=== PATIENT | female | born 1950 | race Caucasian/White ===

== ENCOUNTER 2019-11-12 08:22 | Inpatient (IN) ==
[2019-11-12] MEDS ORDERED: Ondansetron 4 MG/2 ML VIAL IVP ONE (08:55)
[2019-11-12] MEDS ORDERED: *HR* Metoprolol 5 MG/5 ML VIAL IVP PRN (08:55)
[2019-11-12] MEDS ORDERED: Gabapentin 300 MG CAPSULE PO ONE (08:55)
[2019-11-12] MEDS ORDERED: *HR* Promethazine 25 MG/ML VIAL IVP PRN (08:55)
[2019-11-12] MEDS ORDERED: Acetaminophen IV 1,000 MG/100 ML INFUS..BTL IVPB ONE (08:55)
[2019-11-12] MEDS ORDERED: *HR* OxyCODONE Immed Rel 5 MG TABLET PO PRN (08:55)
[2019-11-12] MEDS ORDERED: Ketorolac 15 MG/ML VIAL IVP ONE (08:55)
[2019-11-12] MEDS ORDERED: Clindamycin 900 MG/50 ML 900 MG/50 ML IV.SOLN IVPB ONE (09:23)
[2019-11-12] MEDS ORDERED: Albumin Human 5% 25.0 GM/500 ML IV.SOLN ONE (09:30)
[2019-11-12] MEDS ORDERED: Ringers Solution, Lactated 1,000 ML IVC SCH (09:30)
[2019-11-12] MEDS ORDERED: Ondansetron 4 MG/2 ML VIAL ONE (09:47)
[2019-11-12] MEDS ORDERED: *HR* Rocuronium Bromide 50 MG/5 ML VIAL ONE (09:47)
[2019-11-12] MEDS ORDERED: Lidocaine -MPF 2% 2 ML VIAL ONE (09:47)
[2019-11-12] MEDS ORDERED: *HR* FentaNYL (PF) 100 MCG/2 ML VIAL ONE ×2 (09:47→12:18)
[2019-11-12] MEDS ORDERED: Dexamethasone 4 MG/ML VIAL ONE (09:47)
[2019-11-12] MEDS ORDERED: *HR* Succinylcholine 200 MG/10 ML VIAL IVP ONE (09:47)
[2019-11-12] MEDS ORDERED: EPHEDrine 50 MG/ML VIAL ONE (10:24)
[2019-11-12] MEDS: *HR* HYDROmorphone PF 0.5 MG/0.5 ML SYRINGE IVP PRN ×4 (12:30→12:58)
[2019-11-12] MEDS ORDERED: Ondansetron 4 MG/2 ML VIAL IVP PRN (13:50)
[2019-11-12] MEDS ORDERED: Naloxone 0.4 MG/ML INJ IVP PRN (13:50)
[2019-11-12] MEDS: *HR* Heparin 5,000 UNIT/ML VIAL SQ SCH ×2 (14:54→20:28)
[2019-11-12] MEDS: *HR* HYDROcodone/Acet 5/325 mg TABLET PO PRN ×2 (14:55→20:33)
[2019-11-12] MEDS: Gabapentin 300 MG CAPSULE PO SCH ×2 (14:55→20:28)
[2019-11-12] MEDS: 0.9 % Sodium Chloride 1,000 ML IVC SCH (14:55)
[2019-11-12] MEDS: Ipratropium/Albuterol Neb 3 ML IH SCH ×3 (16:08→23:34)
[2019-11-12] MEDS: Ketorolac 15 MG/ML VIAL IVP SCH ×2 (17:39→23:17)
[2019-11-12] MEDS: Famotidine 20 MG TABLET PO SCH (20:28)
[2019-11-12] MEDS: Sennosides/Docusate Sodium TABLET PO SCH (20:28)
[2019-11-13] MEDS: *HR* HYDROcodone/Acet 5/325 mg TABLET PO PRN ×5 (03:08→22:42)
[2019-11-13] MEDS: Ipratropium/Albuterol Neb 3 ML IH SCH ×5 (04:18→22:58)
[2019-11-13 04:29] LABS: Hematocrit 31.6 % (35.3-44.9); Hemoglobin 10.5 g/dL (11.5-15.4); Mean Corpuscular HGB Conc 33.2 g/dL (31.6-35.5); Mean Corpuscular Hemoglobin 31.5 pg (28.0-33.3); Mean Corpuscular Volume 94.9 fL (83.0-100.0); Mean Platelet Volume 10.6 fL (9.4-12.4); Platelet Count 218 K/mcL (140-400); Red Blood Count 3.33 M/mcL (3.82-4.97); Red Cell Distribution Width 12.2 % (11.5-14.5); White Blood Count 11.3 K/mcL (4.3-11.1)
[2019-11-13 04:50] LABS: % Iron Saturation 9 % (15-50); BUN/Creatinine Ratio 18 (6-26); Blood Urea Nitrogen 14 mg/dL (8-23); Calcium 8.7 mg/dL (8.6-10.3); Carbon Dioxide 25 mEq/L (23-29); Chloride 102 mEq/L (98-107); Glucose 147 mg/dL (70-105); Iron 27 mcg/dL (50-170); Magnesium 1.7 mg/dL (1.6-2.6); Osmolality,Calculated 283 (280-300); Sodium 135 mEq/L (136-145); Transferrin 211 mg/dL (203-362); eGFR For African Americans > 60 (> 60); eGFR For Non-African Americans > 60 (> 60)
[2019-11-13] MEDS: 0.9 % Sodium Chloride 1,000 ML IVC SCH (05:00)
[2019-11-13] MEDS: Ketorolac 15 MG/ML VIAL IVP SCH ×3 (05:17→17:35)
[2019-11-13] MEDS: *HR* Heparin 5,000 UNIT/ML VIAL SQ SCH ×3 (05:17→22:42)
[2019-11-13] MEDS: Gabapentin 300 MG CAPSULE PO SCH ×3 (08:06→19:27)
[2019-11-13] MEDS: Aspirin Enteric Coated 81 MG Tablet PO SCH (08:06)
[2019-11-13] MEDS: Sennosides/Docusate Sodium TABLET PO SCH ×2 (08:07→19:28)
[2019-11-13] MEDS: *HR* GlipiZIDE XL (24 HR) 2.5 MG TABLET PO SCH (08:07)
[2019-11-13] MEDS: amLODIPine 5 MG TABLET PO SCH (08:07)
[2019-11-13] MEDS: Famotidine 20 MG TABLET PO SCH ×2 (08:07→19:28)
[2019-11-13] MEDS: Metoprolol 100 MG TABLET PO SCH (08:07)
[2019-11-13] MEDS ORDERED: Iron Sucrose Complex 400 MG in 0.9 % Sodium Chloride 250 ML IVPB ONE (08:40)
[2019-11-14] MEDS ORDERED: Amiodarone Premix 150 MG/100 ML BAG IVPB ONE (00:45)
[2019-11-14] MEDS: Ketorolac 15 MG/ML VIAL IVP SCH ×4 (00:57→17:55)
[2019-11-14] MEDS ORDERED: Amiodarone Premix 360 MG/200 ML BAG IVC ONE (01:00)
[2019-11-14] MEDS: Ipratropium/Albuterol Neb 3 ML IH SCH (03:48)
[2019-11-14] MEDS: *HR* Heparin 5,000 UNIT/ML VIAL SQ SCH ×3 (06:29→20:33)
[2019-11-14] MEDS: *HR* GlipiZIDE XL (24 HR) 2.5 MG TABLET PO SCH (08:20)
[2019-11-14] MEDS: Sennosides/Docusate Sodium TABLET PO SCH ×2 (08:20→20:33)
[2019-11-14] MEDS: Famotidine 20 MG TABLET PO SCH ×2 (08:20→20:32)
[2019-11-14] MEDS: Aspirin Enteric Coated 81 MG Tablet PO SCH (08:20)
[2019-11-14] MEDS: Gabapentin 300 MG CAPSULE PO SCH ×3 (08:20→20:32)
[2019-11-14] MEDS: amLODIPine 5 MG TABLET PO SCH (08:20)
[2019-11-14] MEDS: Metoprolol 100 MG TABLET PO SCH (08:20)
[2019-11-14] MEDS: Amiodarone Premix 360 MG/200 ML BAG IVC SCH ×2 (08:22→20:36)
[2019-11-14] MEDS ORDERED: Metoprolol XL (24 HR) Succ 50 MG TAB.ER.24H PO ONE (09:30)
[2019-11-14] MEDS: *HR* HYDROcodone/Acet 7.5/325 mg TABLET PO PRN ×3 (12:49→21:14)
[2019-11-15] MEDS: Ketorolac 15 MG/ML VIAL IVP SCH ×2 (00:14→05:01)
[2019-11-15] MEDS: *HR* HYDROcodone/Acet 7.5/325 mg TABLET PO PRN ×5 (01:35→21:04)
[2019-11-15 02:42] LABS: BUN/Creatinine Ratio 21 (6-26); Blood Urea Nitrogen 15 mg/dL (8-23); Calcium 9.6 mg/dL (8.6-10.3); Carbon Dioxide 23 mEq/L (23-29); Chloride 105 mEq/L (98-107); Glucose 97 mg/dL (70-105); Magnesium 2.2 mg/dL (1.6-2.6); Osmolality,Calculated 289 (280-300); Phosphorous 2.2 mg/dL (2.7-4.5); Potassium 4.2 mEq/L (3.5-5.1); Sodium 139 mEq/L (136-145); eGFR For African Americans > 60 (> 60); eGFR For Non-African Americans > 60 (> 60)
[2019-11-15] MEDS: *HR* Heparin 5,000 UNIT/ML VIAL SQ SCH ×3 (05:03→21:04)
[2019-11-15] MEDS ORDERED: Iron Sucrose Complex 400 MG in 0.9 % Sodium Chloride 250 ML IVPB ONE (08:00)
[2019-11-15] MEDS: Famotidine 20 MG TABLET PO SCH ×2 (09:37→21:04)
[2019-11-15] MEDS: amLODIPine 5 MG TABLET PO SCH (09:37)
[2019-11-15] MEDS: Aspirin Enteric Coated 81 MG Tablet PO SCH (09:37)
[2019-11-15] MEDS: *HR* GlipiZIDE XL (24 HR) 2.5 MG TABLET PO SCH (09:38)
[2019-11-15] MEDS: Gabapentin 300 MG CAPSULE PO SCH ×3 (09:38→21:04)
[2019-11-15] MEDS: Sennosides/Docusate Sodium TABLET PO SCH ×2 (09:38→21:05)
[2019-11-15] MEDS: Metoprolol XL (24 HR) Succ 50 MG TAB.ER.24H PO SCH (09:40)
[2019-11-15] MEDS: Ibuprofen 200 MG TABLET PO SCH ×2 (12:11→18:05)
[2019-11-15] MEDS ORDERED: *HR* Amiodarone 200 MG TABLET PO STA (14:44)
[2019-11-16] MEDS: *HR* Amiodarone 200 MG TABLET PO SCH ×3 (00:02→21:15)
[2019-11-16] MEDS: Ibuprofen 200 MG TABLET PO SCH ×4 (00:16→18:04)
[2019-11-16] MEDS: *HR* HYDROcodone/Acet 7.5/325 mg TABLET PO PRN ×2 (04:54→09:00)
[2019-11-16] MEDS: *HR* Heparin 5,000 UNIT/ML VIAL SQ SCH ×3 (04:55→21:15)
[2019-11-16] MEDS: Metoprolol XL (24 HR) Succ 50 MG TAB.ER.24H PO SCH (08:57)
[2019-11-16] MEDS: Aspirin Enteric Coated 81 MG Tablet PO SCH (08:58)
[2019-11-16] MEDS: Gabapentin 300 MG CAPSULE PO SCH ×3 (08:59→21:14)
[2019-11-16] MEDS: Sennosides/Docusate Sodium TABLET PO SCH ×2 (09:00→21:15)
[2019-11-16] MEDS: amLODIPine 5 MG TABLET PO SCH (09:00)
[2019-11-16] MEDS: Famotidine 20 MG TABLET PO SCH ×2 (09:01→21:14)
[2019-11-16] MEDS: *HR* GlipiZIDE XL (24 HR) 2.5 MG TABLET PO SCH (09:01)
[2019-11-16] MEDS: *HR* OxyCODONE/APAP 10/325 TABLET PO PRN ×3 (13:09→21:14)
[2019-11-17] MEDS: Ibuprofen 200 MG TABLET PO SCH ×4 (01:05→18:24)
[2019-11-17] MEDS: *HR* OxyCODONE/APAP 10/325 TABLET PO PRN ×6 (01:05→22:38)
[2019-11-17] MEDS: *HR* Heparin 5,000 UNIT/ML VIAL SQ SCH ×3 (05:45→21:13)
[2019-11-17] MEDS: Gabapentin 300 MG CAPSULE PO SCH ×3 (09:42→21:13)
[2019-11-17] MEDS: Famotidine 20 MG TABLET PO SCH ×2 (09:42→21:13)
[2019-11-17] MEDS: Sennosides/Docusate Sodium TABLET PO SCH ×2 (09:43→21:00)
[2019-11-17] MEDS: *HR* Amiodarone 200 MG TABLET PO SCH ×2 (09:43→21:13)
[2019-11-17] MEDS: *HR* GlipiZIDE XL (24 HR) 2.5 MG TABLET PO SCH (09:43)
[2019-11-17] MEDS: Aspirin Enteric Coated 81 MG Tablet PO SCH (09:43)
[2019-11-17] MEDS: Metoprolol XL (24 HR) Succ 50 MG TAB.ER.24H PO SCH (09:45)
[2019-11-17] MEDS: amLODIPine 5 MG TABLET PO SCH (09:46)
[2019-11-18] MEDS: Ibuprofen 200 MG TABLET PO SCH ×3 (03:41→11:25)
[2019-11-18] MEDS: *HR* OxyCODONE/APAP 10/325 TABLET PO PRN ×3 (03:52→13:20)
[2019-11-18] MEDS: *HR* Heparin 5,000 UNIT/ML VIAL SQ SCH (06:09)
[2019-11-18] MEDS: *HR* GlipiZIDE XL (24 HR) 2.5 MG TABLET PO SCH (08:05)
[2019-11-18] MEDS: Aspirin Enteric Coated 81 MG Tablet PO SCH (08:05)
[2019-11-18] MEDS: Sennosides/Docusate Sodium TABLET PO SCH (08:06)
[2019-11-18] MEDS: Metoprolol XL (24 HR) Succ 50 MG TAB.ER.24H PO SCH (08:06)
[2019-11-18] MEDS: Famotidine 20 MG TABLET PO SCH (08:06)
[2019-11-18] MEDS: Gabapentin 300 MG CAPSULE PO SCH (08:06)
[2019-11-18] MEDS: *HR* Amiodarone 200 MG TABLET PO SCH (08:06)
[2019-11-18] MEDS: amLODIPine 5 MG TABLET PO SCH (08:06)
[2019-11-18 11:40] VITALS: BP 121/76
== END 2019-11-18 13:33 | disposition home or self-care (01) | DRG 165 ==
LOC: SAMDAY 08:22 → 3NENU 13:49
PROVIDERS: ADMIT Thoracic Surgery (Cardiothoracic Vascular Surgery); ATTEND Thoracic Surgery (Cardiothoracic Vascular Surgery)